=== PATIENT | female | born 1970 | race Caucasian/White ===

== ENCOUNTER 2019-09-11 18:22 | Emergency (ER) | payer OTHER ==
[~2019-09-11] VITALS: Ht 170.2 cm; Wt 70.3 kg
[~2019-09-11 18:22] MED LIST: ACYCLOVIR400 MG PO; IBUPROFEN800 MG PO; NORCO 5-325 TA1 EACH PO
== END 2019-09-11 22:13 | disposition home or self-care (01) ==
LOC: ED 18:22
DX: N23 Unspecified renal colic (principal)
CPT/HCPCS: 80053; 81001; 84703; 85025; 96361; 96374; 96375; 99284-25; J1170; J1885; J2405; J7030

== ENCOUNTER 2021-03-07 18:46 | Emergency (ER) | payer OTHER ==
[~2021-03-07] VITALS: Ht 170.2 cm; Wt 70.3 kg
[2021-03-08] MEDS ORDERED: FLOMAX0.4 MG PO (01:04)
[2021-03-08] MEDS ORDERED: HYDROCODON-ACE1 EA10 PO (01:04)
== END 2021-03-08 01:30 | disposition home or self-care (01) ==
LOC: ED 18:46
DX: N13.2 Hydronephrosis with renal and ureteral calculous obstruction (principal)
CPT/HCPCS: 74176; 80053; 81001; 84703; 85025; 96374; 96375; 96376; 99284-25; A9270; J1885; J2270; J2405; J7030